=== PATIENT | female | born 1955 | race Hispanic/Latino ===

== ENCOUNTER 2018-12-11 12:56 | Day surgery (SDC) | payer MEDICARE, SELFPAY ==
[2018-12-11] VITALS (7 sets, daily range): BP systolic 96–114; BP diastolic 47–70; PULSE 76–82; RESP 9–18; TEMP 36.5–37; O2SAT 96–100; BMI 20.8
[2018-12-11] MEDS: SODIUM CHLORIDE 0.9% 1,000 ML 42 ML IV (14:02)
--- NOTE | 2018-12-11 14:08 | PM.HP.1 ---
History of Present Illness Date Patient Seen: 12/11/18 Time Patient Seen: 14:08 Chief complaint: [id number] Narrative: : Cologard positivity Patient History Medical History (Updated 12/11/18 @ 14:08 by Ilda Howard MD) Hypertension (Acute) Surgical History (Updated 10/30/17 @ 06:12 by Conversion Provider) History of spinal fusion Status post tubal ligation Family History (Updated 10/23/16 @ 00:00 by Conversion Provider) Grandmother Hypertension Social History household members: none Family & Social History Family History (Updated 10/23/16 @ 00:00 by Conversion Provider) Grandmother Hypertension Social History: household members none Meds Home Medications Medication Instructions Recorded Confirmed Type nitrofurantoin monohyd/m-cryst 100 mg PO BID #10 cap 09/16/17 Rx [Macrobid] phenazopyridine [Pyridium] 200 mg PO TID #6 tab 09/16/17 Rx lisinopril 5 mg tablet 5 mg PO QDAY #90 tab 11/16/17 Rx Allergies Allergy/AdvReac Type Severity Reaction Status Date / Time sulfa drugs Allergy Unknown Uncoded 12/11/18 13:53 Exam Vital Signs (past 8 hours): - 12/11/18 13:51 Temperature 98.6 F Pulse Rate 76 Respiratory Rate 16 Blood Pressure 104/70 Pulse Oximetry 96 Oxygen Delivery Method Room Air Narrative Exam Narrative: Oropharynx free of lesions Chest clear to auscultation percussion Cardiac exam reveals no S3 or murmur Assessment & Plan Assessment & Plan narrative: History of negative colonoscopy 2006 now with Cologuard positivity. Need for colonoscopy to rule out advanced neoplasia. Risks, benefits, alternatives have been explained.
--- NOTE | 2018-12-11 14:10 | PM.OP.ENDO ---
Operative Date/Time/Diagnoses Date of procedure: 12/11/18 Time of procedure: 14:10 Pre-op diagnosis: See indication and findings Procedure & Clinicians Study performed: Colonoscopy Same procedure as scheduled: Yes Indications: Cologuard positivity Surgeon: Ilda Howard Procedure Notes Procedure in detail: After informed consent was obtained the patient was placed in left lateral decubitus position. The video colonoscope was introduced the rectum slowly advanced to the cecum. On slow withdrawal mucosa was carefully examined. The scope was removed. The patient tolerated procedure well. Preparation was excellent. Blood loss none Complications none Sedation Total sedation time 21 minutes Fentanyl 150 micro g Versed 7 mg IV titration Findings 1. Completely normal colonoscopy to cecum with excellent preparation 2. Severe sigmoid and left colon tortuosity and floppiness. Next colonoscopy should be done with monitored anesthesia care. Given her colon anatomy I do not feel as if I was able to easily go back and forth over several spots but feel that I had excellent view of the entire colon. Would consider repeat Cologuard or colonoscopy with mac in 1 year.
[2018-12-11] MEDS: MIDAZOLAM 5 MG/5 ML VIAL IV (15:00)
[2018-12-11] MEDS: fentaNYL 250 MCG/5 ML INJ IV (15:01)
== END 2018-12-11 16:00 ==
LOC: ENDO 12:59
PROVIDERS: Visit Provider Internal Medicine Gastroenterology
PROC: 0DJD8ZZ Inspection of Lower Intestinal Tract, Via Natural or Artificial Opening Endoscopic (ICD-10-PCS; CPT 45378; principal; 2018-12-11 14:30)
DX: R19.5 Other fecal abnormalities (principal); I10 Essential (primary) hypertension
CPT/HCPCS: 45378; J2250; J3010

== ENCOUNTER → 2018-12-13 12:15 | Outpatient (CLI) | payer MEDICARE, SELFPAY ==
--- NOTE | 2018-12-13 | DI.MG.S_ITS ---
BILATERAL DIGITAL SCREENING MAMMOGRAM 3D/2D WITH CAD: 12/13/2018 CLINICAL: Routine screening. Family history of breast cancer. Comparison is made to exams dated: 10/22/2015 mammogram, 10/18/2015 mammogram, and 11/10/2011 mammogram - [facility]. There are scattered fibroglandular elements in both breasts. Current study was also evaluated with a Computer Aided Detection (CAD) system. No significant masses, calcifications, or other findings are seen in either breast. There has been no significant interval change. IMPRESSION: NEGATIVE There is no mammographic evidence of malignancy. A 1 year screening mammogram is recommended. This exam was interpreted at Station ID: [id number]. NOTE: For mammograms, a report in lay terms will be sent to the patient. Approximately 15% of breast malignancies will not be visualized mammographically. In the management of a palpable breast mass, a negative mammogram must not discourage biopsy of a clinically suspicious lesion. Electronically Signed By: Rolando storng/darrell:12/17/2018 10:55:05 letter sent: Normal Exam ACR BI-RADS Category 1: Negative [id number]
== END ==
PROVIDERS: PCP Internal Medicine; Visit Provider Internal Medicine
DX: Z12.31 Encounter for screening mammogram for malignant neoplasm of breast (principal); Z13.820 Encounter for screening for osteoporosis; M81.0 Age-related osteoporosis without current pathological fracture; Z78.0 Asymptomatic menopausal state
CPT/HCPCS: 77063; 77067; 77080

== ENCOUNTER → 2019-09-08 14:52 | Outpatient (ROUT) | payer MEDICARE, SELFPAY ==
[2019-09-08 16:07] LABS: Blood Urea Nitrogen 15 mg/dL (7-17); Calcium 10.1 mg/dL (8.4-10.2); Carbon Dioxide 32 mmol/L (22-32); Chloride 101 mmol/L (98-107); Cholesterol 249 mg/dL (140-199); Estimated Glomerular Filt Rate > 60.0 mL/min (>60); Glucose 99 mg/dL (80-110); HDL Cholesterol 66 mg/dL (40-60); HEMOLYSIS 23 (0-50); LDL Cholesterol Calculated 138 mg/dL (<100); Potassium 4.3 mmol/L (3.4-5.1); Sodium 139 mmol/L (137-145); Triglycerides 226 mg/dL (35-150)
== END ==
PROVIDERS: PCP Internal Medicine; Visit Provider Internal Medicine
DX: I10 Essential (primary) hypertension (principal)
CPT/HCPCS: 80048; 80061

== ENCOUNTER 2019-12-04 12:42 | Emergency (ER) | payer MEDICARE, SELFPAY ==
[2019-12-04 12:47] VITALS: BP 182/75; PULSE 88; RESP 16; TEMP 36.1; O2SAT 98
--- NOTE | 2019-12-04 12:58 | ED_ITS ---
HPI - Extremity Injury (Lower) <DOROTHY Najera - Last Filed: 12/04/19 16:25> General Chief Complaint: Extremity Injury, Lower Stated Complaint: blood clot lt leg Time Seen by Provider: 12/04/19 12:53 Source: patient Mode of arrival: Ambulatory History of Present Illness HPI Narrative: 64yo female with a history of HTN presenting to the emergency department after consulting with Dr. Thomas for a lump to left lower leg that started today after walking her dog. Patient states she completed the walk with her dog and sent down house noticing her left lower leg was tender, she pulled upper patient's to look at her leg and noticed a large swollen vein in the left lateral side of her leg. Patient states the area was tender, swelling slowly decreased after application of ice. Patient was sent to the emergency department for rule out of DVT versus superficial thrombophlebitis. Patient denies any history of blood clots, diabetes, hypertension, or use of any hormones. Patient denies any long trips or shortness of breath, chest pain, nausea, vomiting, diarrhea, or any other concerns. Related Data Previous Rx's Medication Instructions Recorded nitrofurantoin monohyd/m-cryst 100 mg PO BID #10 cap 09/16/17 [Macrobid] phenazopyridine [Pyridium] 200 mg PO TID #6 tab 09/16/17 lisinopril 5 mg tablet 5 mg PO QDAY #90 tab 11/16/17 Allergies Allergy/AdvReac Type Severity Reaction Status Date / Time Sulfa (Sulfonamide Allergy Unknown Verified 12/04/19 12:49 Antibiotics) Review of Systems <DOROTHY Najera - Last Filed: 12/04/19 16:25> Review of Systems Narrative: REVIEW OF SYSTEMS: GENERAL: Denies fever or chills. HENT: No head trauma. CARDIOVASCULAR: No chest pain or syncope. RESPIRATORY: No cough or shortness of breath.. GASTROINTESTINAL: No nausea, vomiting, diarrhea, or constipation. MUSCULOSKELETAL: Complains of lump on left leg pain, see HPI. INTEGUMENTARY: No rash, lesions, or pruritus. NEURO: No numbness, tingling. PSYCH: No behavior or mood changes. Patient History <DOROTHY Najera - Last Filed: 12/04/19 16:25> Medical History Hypertension (Acute) Surgical History History of spinal fusion Status post tubal ligation Family History Grandmother Hypertension Social History household members: none Smoking Status: Never smoker Smoking Status: Never smoker alcohol intake frequency: a few times a week Substance Use Type: does not use Exam <DOROTHY Najera - Last Filed: 12/04/19 16:25> Initial Vital Signs Initial Vital Signs: Vital Signs Temperature 97.0 F L 12/04/19 12:47 Pulse Rate 88 12/04/19 12:47 Respiratory Rate 16 12/04/19 12:47 Blood Pressure 182/75 H 12/04/19 12:47 Pulse Oximetry 98 12/04/19 12:47 PHYSICAL EXAMINATION: GENERAL: Well groomed, alert, and cooperative. Answers questions promptly and appropriately. Vital signs noted. HENT: Normocephalic, atraumatic. EYES: Symmetrical, sclera white, no periorbital swelling. CARDIOVASCULAR: S1 and S2 sounds normal. Regular rate and rhythm, no murmurs, clicks, or bruits. No pedal edema. RESPIRATORY: Normal respiratory rate, trachea midline, airway patent. No stridor, nasal flaring or accessory muscle use. Lungs are clear in all sandoval. MUSCULOSKELETAL: Very slight raised area noted to left lateral superficial veins of lower leg. Small a tenderness with palpation to this area. Appears like a partially percussed vein versus superficial thrombophlebitis. No swelling, erythema, or lesions. No signs of trauma. No calf tenderness. Normal gait and coordination. Negative Homans sign. EXTREMITIES: CMS intact. Left pedal pulse 2+ and intact. SKIN: Warm, dry, soft, appropriate color for ethnicity. No lesions, rashes, or wounds. NEURO: Alert and Oriented X 3. No sensory deficits. PSYCH: Appropriate affect and mood. <Akira Muniz DO - Last Filed: 12/04/19 16:58> Initial Vital Signs Initial Vital Signs: Vital Signs Temperature 97.0 F L 12/04/19 12:47 Pulse Rate 88 06/04/20 12:47 Respiratory Rate 16 12/04/19 12:47 Blood Pressure 182/75 H 12/04/19 12:47 Pulse Oximetry 98 12/04/19 12:47 Scores <DOROTHY Najera - Last Filed: 12/04/19 16:25> Wells' Criteria for DVT Active Cancer (Treatment within 6 months): No Bedridden recently >3 days or major surgery within 4 weeks: No Calf Swelling >3cm compared to other leg: No Collateral (nonvericose) superficial veins present: Yes Entire leg swollen: No Localized tenderness along the deep vein system: No Pitting edema, confined to symtomatic leg: No Paralysis, paresis, or recent plaster immobilization of ext: No Previously documented DVT: No Alternative dx to DVT as likely or more likely: No Camilo' criteria for DVT: 1 Course <DOROTHY Najera - Last Filed: 12/04/19 16:25> Orders Ordered: ED Orders 12/04/19 13:15 D Dimer Stat Vital Signs Vital signs: Vital Signs - 8 hr 12/04/19 12:47 12/04/19 13:00 12/04/19 13:30 Temperature 97.0 F L Pulse Rate 88 74 73 Respiratory Rate 16 16 18 Blood Pressure 182/75 H Blood Pressure [Right Arm] 132/61 132/70 Pulse Oximetry 98 97 98 12/04/19 14:00 12/04/19 14:11 Temperature Pulse Rate 74 83 Respiratory Rate 18 Blood Pressure 122/73 Blood Pressure [Right Arm] 122/73 Pulse Oximetry 98 99 <Akira Muniz DO - Last Filed: 12/04/19 16:58> Orders Ordered: ED Orders 12/04/19 13:15 D Dimer Stat Vital Signs Vital signs: Vital Signs - 8 hr 12/04/19 12:47 12/04/19 13:00 12/04/19 13:30 Temperature 97.0 F L Pulse Rate 88 74 73 Respiratory Rate 16 16 18 Blood Pressure 182/75 H Blood Pressure [Right Arm] 132/61 132/70 Pulse Oximetry 98 97 98 12/04/19 14:00 12/04/19 14:11 Temperature Pulse Rate 74 83 Respiratory Rate 18 Blood Pressure 122/73 Blood Pressure [Right Arm] 122/73 Pulse Oximetry 98 99 MDM - Extremity Injury (Lower) <Kendal OntiverosDOROTHY - Last Filed: 12/04/19 16:25> Medical Records Attestation: I reviewed the patient's medical records. Lab Data Attestation: I reviewed the patient's lab results. Labs: Lab Results 12/04/19 Range/Units 13:15 D-Dimer < 200 (<230) ng/mL [facility] [place] Narrative Medical decision making narrative: 64-year-old female presents emergency department for evaluation of left lateral lower leg pain. I suspect patient's pain is most likely due to superficial thrombophlebitis versus varicose vein due to superficial location of area affected, small amount of swelling and tenderness to the lateral aspect of her lower leg, and lack of other findings to suggest different etiology. Less likely DVT, well's criteria score of 1 indicating indicating a D-dimer test is advised. D-dimer is negative therefore chance of DVT is <1% and no further imaging is needed. Less likely infection due to lack of erythema or systemic symptoms such as fever tachycardia. Less likely trauma due to no reports of direct trauma to the area, no bony tenderness. Patient was encouraged to follow up with her primary care provider in 1 week for further evaluation. Return precautions given for new or worsening symptoms. Patient agrees to plan of care verbalized understanding. <Akira Muniz DO - Last Filed: 12/04/19 16:58> Lab Data Labs: Lab Results 12/04/19 Range/Units 13:15 D-Dimer < 200 (<230) ng/mL Discharge Plan Departure Patient Disposition: Home Clinical Impression: Superficial thrombophlebitis Qualifiers: Superficial thrombophlebitis-Involved body area: lower extremity Laterality: left Qualified Code(s): I80.02 - Phlebitis and thrombophlebitis of superficial vessels of left lower extremity Discharge Date/Time: 12/04/19 14:13 Instructions: DI for Superficial Thrombophlebitis Activity Restrictions/Additional Instructions: Thank you for entrusting me with your care today. As discussed, your blood test was negative indicating that a deep blood clot is very rare. Your symptoms are most likely caused by a superficial clot in a very small vein or varicose veins, sometimes these veins can break in cough small amount bleeding. We have given you an Abdulkadir wrap, wear this during the day for the next few days to help with swelling and pain. I do recommend following up with your primary care provider in a week for further evaluation. Return emergency department for any new or worsening symptoms such as severe pain, calf pain, shortness of breath, chest pain, dizziness, or any other concerns. Prescriptions: No Action phenazopyridine [Pyridium] 200 MG tablet 200 mg PO TID Qty: 6 RF: 0 nitrofurantoin monohyd/m-cryst [Macrobid] 100 MG capsule 100 mg PO BID Qty: 10 RF: 0 lisinopril 5 mg tablet 5 mg PO QDAY Qty: 90 RF: 3 Referrals: Margaret Gamboa MD [Primary Care Provider] - <Akira Muniz, - Last Filed: 12/04/19 16:58> Cosign ED Attending Cosignature Attestation: Dr Muniz Co-Sign Statement: I was available for consultation during this patient's emergency department visit. This chart is signed by myself for administrative purposes only. I did not have direct contact with this patient during this visit. They were seen independently by the APC.
[2019-12-04 13:00] VITALS: BP 132/61; PULSE 71; PULSE 74; RESP 16; O2SAT 97
[2019-12-04 13:30] VITALS: BP 132/70; PULSE 73; RESP 18; O2SAT 98
[2019-12-04 13:36] LABS: D Dimer < 200 ng/mL (<230)
[2019-12-04 14:00] VITALS: BP 122/73; PULSE 74; RESP 18; O2SAT 98
[2019-12-04 14:11] VITALS: BP 122/73; PULSE 83; O2SAT 99
== END 2019-12-04 14:13 | disposition home or self-care (01) ==
PROVIDERS: Emergency Provider Nurse Practitioner; PCP Internal Medicine
DX: I80.02 Phlebitis and thrombophlebitis of superficial vessels of left lower extremity (principal)
CPT/HCPCS: 36415; 85379; 99283

== ENCOUNTER → 2020-10-19 07:01 | Outpatient (CLI) | payer OTHER, SELFPAY ==
[2020-10-19 08:28] LABS: Alanine Aminotransferase 17 IU/L (<35); Albumin 4.2 g/dL (3.5-5.0); Albumin Globulin Ratio 1.5 (1.0-2.8); Alkaline Phosphatase 59 U/L (38-126); Aspartate Aminotransferase 25 IU/L (14-36); BUN Creatinine Ratio 24.6 (6-22); Bilirubin Total 0.5 mg/dL (0.2-1.3); Blood Urea Nitrogen 14 mg/dL (7-17); Calcium 9.5 mg/dL (8.4-10.2); Carbon Dioxide 30 mmol/L (22-32); Chloride 103 mmol/L (98-107); Cholesterol 243 mg/dL (140-199); Estimated Glomerular Filt Rate > 60.0 mL/min (>60); Globulin 2.8 g/dL (1.7-4.1); Glucose 100 mg/dL (80-110); HDL Cholesterol 65 mg/dL (40-60); HEMOLYSIS < 15 (0-50); LDL Cholesterol Calculated 151 mg/dL (<100); Potassium 4.5 mmol/L (3.4-5.1); Sodium 139 mmol/L (137-145); Triglycerides 135 mg/dL (35-150)
[2020-10-19 08:41] LABS: Vitamin D 25 Hydroxy (D3) 30.4 ng/mL (30.0-100.0)
== END ==
PROVIDERS: PCP Internal Medicine; Referring Provider Internal Medicine; Visit Provider Internal Medicine
DX: I10 Essential (primary) hypertension (principal); M81.0 Age-related osteoporosis without current pathological fracture; E78.5 Hyperlipidemia, unspecified
CPT/HCPCS: 36415; 80053; 80061; 82306

== ENCOUNTER 2021-10-24 05:13 | Emergency (ER) | payer OTHER, SELFPAY ==
[2021-10-24 05:23] VITALS: BP 136/62; PULSE 122; RESP 17; TEMP 37.7; O2SAT 99; BMI 21.2
--- NOTE | 2021-10-24 05:23 | DI.RAD.S_ITS ---
PROCEDURE: XR CHEST 1V INDICATIONS: eval for PNA TECHNIQUE: One view of the chest was acquired. COMPARISON: None. FINDINGS: Surgical changes and devices: None. Lungs and pleura: Lungs are clear. No pleural effusions or pneumothorax. Mediastinum: Mediastinal contours appear normal. Heart size is normal. Bones and chest wall: No suspicious bony lesions. Overlying soft tissues appear unremarkable. IMPRESSION: No acute cardiopulmonary disease process. Dictated by: Barb Howard MD, PhD on 10/24/2021 at 7:42 Approved by: Barb Howard MD, PhD on 10/24/2021 at 7:42
[2021-10-24 05:49] VITALS: PULSE 106; O2SAT 98
--- NOTE | 2021-10-24 05:49 | ED_ITS ---
HPI - General Adult General Chief complaint: Upper Respiratory Symptoms Stated complaint: Pnemonia Time Seen by Provider: 10/24/21 05:22 Source: patient Mode of arrival: Ambulatory Limitations: no limitations History of Present Illness HPI narrative: 66-year-old female who is here for evaluation approximately 1 week of upper of abdominal discomfort, bilateral lower chest discomfort, lateral back discomfort, sinus congestion, dry cough, scratching sound in her ears and sore throat. No nausea vomiting, no diarrhea or constipation, no urinary symptoms, note chest pain, no shortness of breath, no skin rashes. Related Data Previous Rx's Medication Instructions Recorded nitrofurantoin 100 mg PO BID #10 cap 09/16/17 monohydrate/macrocrystals 100 mg capsule (Macrobid) phenazopyridine 200 mg tablet 200 mg PO TID #6 tab 09/16/17 (Pyridium) lisinopril 5 mg tablet 5 mg PO QDAY #90 tab 11/16/17 benzonatate 100 mg capsule 100 mg PO BID-TID PRN #20 cap 10/24/21 Allergies Allergy/AdvReac Type Severity Reaction Status Date / Time Sulfa (Sulfonamide Allergy Unknown Verified 12/04/19 12:49 Antibiotics) Review of Systems Constitutional Constitutional: Denies fever(s) ENT Ears, Nose, Mouth, and Throat: Reports system reviewed and no additional complaints, except as documented and Reports as per HPI Cardiovascular Cardiovascular: Reports as per HPI and Reports system reviewed and no additional complaints, except as documented Respiratory Respiratory: Reports as per HPI and Reports system reviewed and no additional complaints, except as documented Gastrointestinal Gastrointestinal: Reports as per HPI and Reports system reviewed and no additional complaints, except as documented Genitourinary Genitourinary: Reports system reviewed and no additional complaints, except as documented and Reports as per HPI Musculoskeletal Musculoskeletal: Reports system reviewed and no additional complaints, except as documented and Reports as per HPI Integumentary/Breasts Skin/Breast: Reports system reviewed and no additional complaints, except as documented and Reports as per HPI Hematologic/Lymphatic On Anticoagulants: No Patient History Medical History (Updated 10/24/21 @ 06:43 by Akira Muniz DO) Hypertension Surgical History History of spinal fusion Status post tubal ligation Family History Grandmother Hypertension Social History household members: none Smoking Status: Never smoker Smoking Status: Never smoker alcohol intake frequency: a few times a week Substance Use Type: does not use Exam Initial Vital Signs Initial Vital Signs: Vital Signs Temperature 99.9 F H 10/24/21 05:23 Pulse Rate 122 H 10/24/21 05:23 Respiratory Rate 17 10/24/21 05:23 Blood Pressure 136/62 10/24/21 05:23 Pulse Oximetry 99 10/24/21 05:23 Const General: cooperative, healthy appearing, comfortable and well developed HENMT Head: normal to inspection and normocephalic Ears: TM normal on the right and TM abnormal bulging on the left Mouth: moist mucous membranes Throat: posterior oropharynx normal Resp Effort & Inspection: normal respiratory effort Auscultation: clear to auscultation bilaterally Cardio Rate: regular rate Rhythm: regular rhythm GI Inspection: normal to inspection Skin General: no rashes or lesions noted Neuro General: patient alert, patient awake, patient oriented x3 and moves all ext remities Extrem General: normal to inspection and capillary refill normal Psych Appearance: grossly normal and well kempt Course Orders Ordered: ED Orders 10/24/21 05:20 COVID19 -Nasal RAPID/Pre-Proc Stat 10/24/21 05:23 XR chest 1V Stat 10/24/21 05:45 Complete Blood Count AUTO DIFF Stat Comprehensive Metabolic Panel Stat Lipase Stat Troponin & CK Cardiac Panel Stat Vital Signs Vital signs: Vital Signs - 8 hr 10/24/21 05:23 10/24/21 05:49 Temperature 99.9 F H Pulse Rate 122 H 106 H Respiratory Rate 17 Blood Pressure 136/62 Pulse Oximetry 99 98 Medical Decision Making Lab Data Lab results reviewed: Yes I reviewed the patient's lab results. Result diagrams: 10/24/21 05:45 10/24/21 05:45 Labs: Lab Results 10/24/21 10/24/21 10/24/21 Range/Units 05:20 05:45 05:45 WBC 8.4 (4.5-11.0) X10^3/uL RBC 3.46 L (4.0-5.2) X10^6/uL Hgb 10.5 L (12.0-16.0) g/dL Hct 31.0 L (36-46) % MCV 89.5 (80-100) fL MCH 30.3 (26-34) PG MCHC 33.9 (30-36) % RDW 12.0 (11.6-14.8) % Plt Count 284 (150-400) X10^3/uL Neut % (Auto) 75.4 H (50-75) % Lymph % (Auto) 12.2 L (25-40) % [place] % (Auto) 11.3 (3-14) % Eos % (Auto) 0.4 L (2-4) % Baso % (Auto) 0.7 (0-2) % Neut # (Auto) 6400 (7477-5781) /uL Lymph # (Auto) 1000 L (1726-9035) /uL [place] # (Auto) 900 (0-900) /uL Eos # (Auto) 0 (0-450) /uL Baso # (Auto) 100 (0-100) /uL Sodium 138 (137-145) mmol/L Potassium 3.6 (3.4-5.1) mmol/L Chloride 102 (98-107) mmol/L Carbon Dioxide 28 (22-32) mmol/L BUN 12 (7-17) mg/dL Creatinine 0.49 L (0.52-1.04) mg/dL Estimated GFR > 60 (>60) mL/min BUN/Creatinine Ratio 24.5 H (6-22) Glucose 115 H (80-110) mg/dL Calcium 8.8 (8.4-10.2) mg/dL Total Bilirubin 0.7 (0.2-1.3) mg/dL AST 19 (14-36) IU/L ALT 17 (<35) IU/L Alkaline Phosphatase 82 (38-126) U/L Total Creatine Kinase (30-135) U/L CK-MB (CK-2) CK-MB (CK-2) Rel Index Troponin I (0.01-0.034) ng/mL Total Protein 7.0 (6.3-8.2) g/dL Albumin 3.6 (3.5-5.0) g/dL Globulin 3.4 (1.7-4.1) g/dL Albumin/Globulin Ratio 1.1 (1.0-2.8) Lipase 73 (23-300) U/L SARS-CoV-2 (PCR) Negative (Negative) 10/24/21 Range/Units 05:45 WBC (4.5-11.0) X10^3/uL RBC (4.0-5.2) X10^6/uL Hgb (12.0-16.0) g/dL Hct (36-46) % MCV (80-100) fL MCH (26-34) PG MCHC (30-36) % RDW (11.6-14.8) % Plt Count (150-400) X10^3/uL Neut % (Auto) (50-75) % Lymph % (Auto) (25-40) % [place] % (Auto) (3-14) % Eos % (Auto) (2-4) % Baso % (Auto) (0-2) % Neut # (Auto) (1586-5436) /uL Lymph # (Auto) (4267-2722) /uL [place] # (Auto) (0-900) /uL Eos # (Auto) (0-450) /uL Baso # (Auto) (0-100) /uL Sodium (137-145) mmol/L Potassium (3.4-5.1) mmol/L Chloride (98-107) mmol/L Carbon Dioxide (22-32) mmol/L BUN (7-17) mg/dL Creatinine (0.52-1.04) mg/dL Estimated GFR (>60) mL/min BUN/Creatinine Ratio (6-22) Glucose (80-110) mg/dL Calcium (8.4-10.2) mg/dL Total Bilirubin (0.2-1.3) mg/dL AST (14-36) IU/L ALT (<35) IU/L Alkaline Phosphatase (38-126) U/L Total Creatine Kinase 23 L (30-135) U/L CK-MB (CK-2) TNP CK-MB (CK-2) Rel Index TNP Troponin I < 0.012 (0.01-0.034) ng/mL Total Protein (6.3-8.2) g/dL Albumin (3.5-5.0) g/dL Globulin (1.7-4.1) g/dL Albumin/Globulin Ratio (1.0-2.8) Lipase (23-300) U/L SARS-CoV-2 (PCR) (Negative) Imaging Data Chest x-ray: Radiologist's Impression: No acute cardiopulmonary abnormality is identified ECG Data Attestation: I personally reviewed and interpreted this ECG as follows: Interpretation: Sinus rhythm Ventricular rate 116 Normal axis Normal QRS Normal QTC No ST T wave changes MDM Narrative Medical decision making narrative: Patient is very well-appearing. Heart rate elevated upon arrival but this improved without specific intervention here in the ER. With sinus tachycardia on the EKG. Chest x-ray shows no signs of pneumonia. No respiratory distress. Low suspicion for ACS. Low suspicion for acute bacterial infection. No urinary symptoms. No skin rashes. Low suspicion for meningitis. Patient does have a sore throat and fullness in her left ear which is most likely causing her headache. We did discuss the use of antihistamines and decongestants. Will send home with test line to see if this helps her coughing. She is on lisino pril which could potentially be causing her cough however at his only been going on for 1 week and there is no indication to stop that medication currently. She has a follow-up with her primary doctor later this week. She was given return precautions. She expressed understanding and agreement. Discharge Plan Departure Patient Disposition: Home Clinical Impression: Cough, Headache Instructions: Cough (Alternative Therapy), Cough Activity Restrictions/Additional Instructions: Continue to take all of your medications as directed and keep your scheduled medical appointment your primary doctor later this week. Return to the emergency department for any new or worsening symptoms. Prescriptions: New benzonatate 100 mg capsule 100 mg PO BID-TID PRN (Reason: cough) Qty: 20 0RF No Action phenazopyridine [Pyridium] 200 MG tablet 200 mg PO TID Qty: 6 0RF nitrofurantoin monohyd/m-cryst [Macrobid] 100 MG capsule 100 mg PO BID Qty: 10 0RF lisinopril 5 mg tablet 5 mg PO QDAY Qty: 90 3RF Referrals: Margaret Gamboa MD [Primary Care Provider] -
[2021-10-24 05:50] LABS: COVID19 -Nasal RAPID Negative (Negative)
[2021-10-24 06:00] VITALS: BP 118/57; PULSE 109; RESP 12; O2SAT 98
[2021-10-24 06:00] LABS: Add Manual Diff / Slide Review NO; Basophils Absolute Auto 100 /uL (0-100); Basophils Percent Auto 0.7 % (0-2); Eosinophils Absolute Auto 0 /uL (0-450); Eosinophils Percent Auto 0.4 % (2-4); Hemoglobin 10.5 g/dL (12.0-16.0); Lymphocytes Absolute Auto 1000 /uL (1100-4500); Lymphocytes Percent Auto 12.2 % (25-40); Mean Corpuscular HGB Conc 33.9 % (30-36); Mean Corpuscular Hemoglobin 30.3 PG (26-34); Mean Corpuscular Volume 89.5 fL (80-100); Monocytes Absolute Auto 900 /uL (0-900); Monocytes Percent Auto 11.3 % (3-14); Neutrophils Absolute Auto 6400 /uL (1500-7000); Neutrophils Percent Auto 75.4 % (50-75); Platelet Count 284 X10^3/uL (150-400); Red Blood Cell Count 3.46 X10^6/uL (4.0-5.2); White Blood Cell Count 8.4 X10^3/uL (4.5-11.0)
[2021-10-24 06:06] LABS: Alanine Aminotransferase 17 IU/L (<35); Albumin 3.6 g/dL (3.5-5.0); Albumin Globulin Ratio 1.1 (1.0-2.8); Alkaline Phosphatase 82 U/L (38-126); Aspartate Aminotransferase 19 IU/L (14-36); BUN Creatinine Ratio 24.5 (6-22); Bilirubin Total 0.7 mg/dL (0.2-1.3); Blood Urea Nitrogen 12 mg/dL (7-17); Calcium 8.8 mg/dL (8.4-10.2); Carbon Dioxide 28 mmol/L (22-32); Chloride 102 mmol/L (98-107); Creatine Kinase 23 U/L (30-135); Estimated Glomerular Filt Rate > 60 mL/min (>60); Globulin 3.4 g/dL (1.7-4.1); Glucose 115 mg/dL (80-110); HEMOLYSIS < 15 (0-50); Lipase 73 U/L (23-300); Potassium 3.6 mmol/L (3.4-5.1); Sodium 138 mmol/L (137-145)
[2021-10-24 06:17] LABS: Troponin I < 0.012 ng/mL (0.01-0.034)
[2021-10-24 06:30] VITALS: BP 131/59; PULSE 108; RESP 22; O2SAT 96
[2021-10-24 06:57] VITALS: BP 120/58; PULSE 107; RESP 20; O2SAT 97
== END 2021-10-24 06:58 | disposition home or self-care (01) ==
PROVIDERS: Emergency Provider Emergency Medicine; PCP Internal Medicine
DX: R10.10 Upper abdominal pain, unspecified (principal); R07.9 Chest pain, unspecified; R05.9 Cough, unspecified; R51.9 Headache, unspecified; Z20.822 Contact with and (suspected) exposure to COVID-19
CPT/HCPCS: 36415; 71045; 80053; 82550; 83690; 84484; 85025; 87635; 93005; 99284; C9803

== ENCOUNTER → 2021-11-02 11:48 | Outpatient (CLI) | payer OTHER, SELFPAY ==
--- NOTE | 2021-11-02 11:58 | DI.CT.S_ITS ---
PROCEDURE: CT ANGIO CHEST PE PROTOCOL INDICATIONS: Chest pain, RULE OUT PE TECHNIQUE: After the administration of intravenous contrast, 2 mm thick sections acquired from the pulmonary apices to the posterior costophrenic angles. 3-dimensional maximum intensity projection (MIP) coronal and sagittal reformats were then acquired through the thorax. For radiation dose reduction, the following was used: automated exposure control, adjustment of mA and/or kV according to patient size. COMPARISON: None. FINDINGS: Image quality: Excellent. Pulmonary arteries: Pulmonary arteries are normal in size, and demonstrate no intraluminal filling defects to suggest central pulmonary embolism. Lungs and pleura: There is mild bilateral apical scarring. Mediastinum: Heart size is normal, without pericardial effusion. No mediastinal or hilar adenopathy. Thoracic aorta is normal in caliber and enhancement. Esophagus is normal in caliber, without hiatal hernia. Bones and chest wall: No suspicious bony lesions. Ribs and thoracic spine appear intact throughout. Thyroid gland is unremarkable. No axillary or supraclavicular adenopathy. Abdomen: Visualized upper abdominal solid organs appear normal in the early arterial phase of enhancement. IMPRESSION: 1. No acute pulmonary embolus. 2. No acute cardiopulmonary findings. Dictated by: Flora Schilling M.D. on 11/02/2021 at 12:55 Approved by: Flora Schilling M.D. on 11/02/2021 at 12:58
== END ==
PROVIDERS: PCP Internal Medicine; Referring Provider Internal Medicine; Visit Provider Internal Medicine
DX: R07.9 Chest pain, unspecified (principal)
CPT/HCPCS: 71275

== ENCOUNTER → 2021-11-17 14:23 | Outpatient (CLI) | payer OTHER, SELFPAY ==
--- NOTE | 2021-11-17 14:24 | DI.MG.S_ITS ---
BILATERAL DIGITAL SCREENING MAMMOGRAM 3D/2D WITH CAD: 11/17/2021 CLINICAL: Routine screening. Family history of breast cancer. Comparison is made to exams dated: 12/13/2018 mammogram - [facility], 10/22/2015 mammogram, 10/18/2015 mammogram, and 11/10/2011 mammogram - [facility]. There are scattered fibroglandular elements in both breasts. Current study was also evaluated with a Computer Aided Detection (CAD) system. No significant masses, calcifications, or other findings are seen in either breast. There has been no significant interval change. IMPRESSION: NEGATIVE There is no mammographic evidence of malignancy. A 1 year screening mammogram is recommended. This exam was interpreted at Station ID: [id number]. NOTE: For mammograms, a report in lay terms will be sent to the patient. Approximately 15% of breast malignancies will not be visualized mammographically. In the management of a palpable breast mass, a negative mammogram must not discourage biopsy of a clinically suspicious lesion. Electronically Signed By: Hill yuen/darrell:11/17/2021 15:00:43 letter sent: Normal Exam ACR BI-RADS Category 1: Negative 3341F
== END ==
PROVIDERS: PCP Internal Medicine; Referring Provider Internal Medicine; Visit Provider Internal Medicine
DX: Z12.31 Encounter for screening mammogram for malignant neoplasm of breast (principal); M81.0 Age-related osteoporosis without current pathological fracture; Z80.3 Family history of malignant neoplasm of breast
CPT/HCPCS: 77063; 77067; 77080

== ENCOUNTER → 2024-12-31 16:31 | Outpatient (CLI) | payer MEDICARE, SELFPAY ==
--- NOTE | 2024-12-31 16:33 | DI.MG.S_ITS ---
MM screening mammo BI: 12/31/2024. BI-RADS: 1 CLINICAL: 69-year old female for bilateral screening mammogram. Tyrer-Cuzick lifetime risk of 3.6%. No personal or first-degree family history of breast cancer. Current reported family history of breast cancer: paternal aunt. PRIOR EXAMS 11/17/2021, 12/13/2018. MAMMOGRAPHY TECHNIQUE: 2D and 3D (tomosynthesis) digital mammographic views obtained, with additional images as needed for full coverage. Current study was also evaluated with a Computer Aided Detection (CAD) system. DENSITY B. There are scattered areas of fibroglandular density. MAMMOGRAPHY FINDINGS Bilateral: No suspicious mass, asymmetry, microcalcification, or other abnormality seen. No significant change from comparison. IMPRESSION: * No evidence of malignancy. RECOMMENDATIONS Bilateral * Annual screening mammography. OVERALL ASSESSMENT CATEGORY BI-RADS-1: Negative. [employer] recommends annual screening mammography beginning at age 40 for women with average risk of breast cancer. ELECTRONICALLY SIGNED: Yamilet Gonzalez M.D. on 01/22/2025 at 02:50:42 PM PT Interpreting Station ID: [id number]
== END ==
LOC: MAMMO 16:32
PROVIDERS: Referring Provider Internal Medicine; Visit Provider Internal Medicine
DX: Z12.31 Encounter for screening mammogram for malignant neoplasm of breast (principal); Z80.3 Family history of malignant neoplasm of breast
CPT/HCPCS: 77063; 77067